=== PATIENT | female | born 1990 | race Caucasian/White ===

== ENCOUNTER 2017-06-04 22:04 | Emergency (ER) | payer OTHER ==
[~2017-06-04] VITALS: Ht 177.8 cm; Wt 97.5 kg
[~2017-06-04 22:04] MED LIST: CRUTCH1 EACH; GABAPENTIN400 MG PO; LEVEMIR100 UNIT/1 SUB-Q; LISINOPRIL40 MG PO; NOVOLOG100 UNITS/ IV
--- OUTSIDE RECORDS SUMMARY | 2017-06-04 22:10 | XMS | Clinical Summary ---
Demographics + + + | Address | [address] | | | [place] [address] | + + + | Home Phone | | + + + | Preferred Language | Unknown | + + + | Marital Status | Single | + + + | Mandaen Affiliation | CHR | + + + | Race | Unknown | + + + | Ethnic Group | Not or | + + + Author + + + | Author | [facility] | + + + | Organization | [facility] | + + + | Address | Unknown | + + + | Phone | Unavailable | + + + Support + + +---------+ + | Name | Relationship | Address | Phone | + + +---------+ + | BRIAN PIERSON | ECON | Unknown | | + + +---------+ + Care Team Providers + +------+ + | Care Liquid Fertilizer Servicer Name | Role | Phone | + +------+ + | Juan Byrne MD | PP | | + +------+ + Source Comments FAB is fully live on both [facility] and [facility] Allergies + + + + + + | Active Allergy | Reactions | Severity | Noted | Comments | | | | | Date | | + + + + + + | Metronidazole | Hives | Medium | 10/20/19 | | | | | | 17 | | + + + + + + | Miconazole | Rash | Medium | 12/28/19 | Burning | | | | | 16 | | + + + + + + | Adhesive Tape | Hives | Medium | 10/20/19 | Paper | | | | | 17 | | + + + + + + Current Medications + + +---------+---------+------+------+-------+ | Prescription | Sig. | Disp. | Refills | Star | End | Statu | | | | | | t | Date | s | | | | | | Date | | | + + +---------+---------+------+------+-------+ | amitriptyline 25 | Take 25 mg by mouth | | | 04/2 | 04/2 | Activ | | mg oral tablet | once daily at | | | 09/28 | 09/28 | e | | | bedtime. | | | 17 | 18 | | + + +---------+---------+------+------+-------+ | amLODIPine 10 mg | Take 10 mg by mouth | | | | | Activ | | oral tablet | once daily. | | | | | e | + + +---------+---------+------+------+-------+ | | Take 25 mg by mouth | | | 09/09 | 09/09 | Activ | | hydroCHLOROthiazide | once daily. | | | 8 | 8 | e | | 25 mg oral tablet | | | | 17 | 18 | | + + +---------+---------+------+------+-------+ | insulin aspart | Up to 40 units daily | | | 02/0 | | Activ | | (NOVOLOG) 100 | | | | 2/20 | | e | | unit/mL subcutaneous | | | | 17 | | | | solution | | | | | | | + + +---------+---------+------+------+-------+ | lisinopril 40 mg | Take 40 mg by mouth | | | 06/10 | 06/10 | Activ | | oral tablet | once daily. | | | 0/20 | 0/20 | e | | | | | | 17 | 18 | | + + +---------+---------+------+------+-------+ | topiramate 50 mg | Take 50 mg by mouth | | | 06/0 | 06/0 | Activ | | oral tablet | once daily. | | | 08/29 | 08/29 | e | | | | | | 17 | 18 | | + + +---------+---------+------+------+-------+ | Blood Sugar | 1 each four times | 200 | 11 | 10/10 | | Activ | | Diagnostic (CONTOUR | daily. Use as | each | | 0 | | e | | NEXT STRIPS) | directed. | | | 17 | | | | stripIndications: | Indications: type 1 | | | | | | | type 1 diabetes | diabetes mellitus | | | | | | | mellitus | | | | | | | + + +---------+---------+------+------+-------+ | insulin aspart | To use through the | 10 mL | 0 | 10/10 | | Activ | | (NOVOLOG) 100 | pump, about 70 units | | | 0 | | e | | unit/mL subcutaneous | daily. | | | 17 | | | | | Indications: type 1 | | | | | | | solutionIndications: | diabetes mellitus | | | | | | | type 1 diabetes | | | | | | | | mellitus | | | | | | | + + +---------+---------+------+------+-------+ Active Problems Not on file Family History + + +------+ + | Medical History | Relation | Name | Comments | + + +------+ + | Obesity | Brother | | | + + +------+ + | Hypertension | Mother | | | + + +------+ + | Obesity | Mother | | | + + +------+ + + +------+--------+ + | Relation | Name | Status | Comments | + +------+--------+ + | Brother | | | | + +------+--------+ + | Mother | | | | + +------+--------+ + Social History + +-------+ +--------+------+ | Tobacco Use | Types | Packs/Day | Years | Date | | | | | Used | | + +-------+ +--------+------+ | Never Smoker | | | | | + +-------+ +--------+------+ + +---+---+---+ | Smokeless Tobacco: | | | | | Never Used | | | | + +---+---+---+ + + +---------+ + | Alcohol Use | Drinks/We | oz/Week | Comments | | | ek | | | + + +---------+ + | No | | | | + + +---------+ + + + + | Sex Assigned at | Date Recorded | | | | + + + | Not on file | | + + + Last Filed Vital Signs + + + + | Vital Sign | Reading | Time Taken | + + + + | Blood Pressure | 122/80 | 10/19/2016 1:34 PM PDT | + + + + | Pulse | 68 | 10/19/2016 1:34 PM PDT | + + + + | Temperature | - | - | + + + + | Respiratory Rate | 22 | 11/14/2007 3:22 AM PDT | + + + + | Oxygen Saturation | 100% | 11/14/2007 3:22 AM PDT | + + + + | Inhaled Oxygen | - | - | | Concentration | | | + + + + | Weight | 112.9 kg (249 lb) | 10/19/2016 1:34 PM PDT | + + + + | Height | 175.3 cm (5' 9") | 10/19/2016 1:34 PM PDT | + + + + | Body Mass Index | 36.77 | 10/19/2016 1:34 PM PDT | + + + + Plan of Treatment + + + + + | Health Maintenance | Due Date | Last Done | Comments | + + + + + | INFLUENZA VACCINE | | 04/01/2016, 11/11/2014, | | | (FLU SHOT) | 7 | 01/19/2012, Additional history | | | | | exists | | + + + + + Results Not on filefrom Last 3 Months
--- OUTSIDE RECORDS SUMMARY | 2017-06-04 22:10 | XMS | Clinical Summary ---
Demographics + + + | Address | [address] | | | [place] [address] | + + + | Home Phone | | + + + | Preferred Language | Unknown | + + + | Marital Status | Single | + + + | Jew Affiliation | CHR | + + + | Race | Unknown | + + + | Ethnic Group | Not or | + + + Author + + + | Author | [facility] | + + + | Organization | [facility] | + + + | Address | Unknown | + + + | Phone | Unavailable | + + + Support + + +---------+ + | Name | Relationship | Address | Phone | + + +---------+ + | BRIAN PIERSON | ECON | Unknown | | + + +---------+ + Care Team Providers + +------+ + | Care Tank Tender Name | Role | Phone | + +------+ + | Juan Byrne MD | PP | | + +------+ + Source Comments FAB is fully live on [facility] Allergies + + + + + [...]
[2017-06-04] MEDS ORDERED: AMITRIPTYLINE H25 MG PO (22:15)
[2017-06-04] MEDS ORDERED: TOPAMAX25 MG PO (22:16)
== END 2017-06-04 22:52 | disposition home or self-care (01) ==
LOC: ED 22:04
DX: H10.9 Unspecified conjunctivitis (principal); E10.9 Type 1 diabetes mellitus without complications; Z79.4 Long term (current) use of insulin; Z79.899 Other long term (current) drug therapy
CPT/HCPCS: 99282